=== PATIENT | male | born 1985 | race Caucasian/White ===

== ENCOUNTER 2019-06-03 06:34 | Day surgery (SDC) | payer OTHER, SELFPAY ==
--- NOTE | 2019-06-03 06:47 | EKG12_ITS ---
Test Reason : PRE OP Blood Pressure : / mmHG Vent. Rate : 062 BPM Atrial Rate : 062 BPM P-R Int : 176 ms QRS Dur : 090 ms QT Int : 390 ms P-R-T Axes : 072 040 028 degrees QTc Int : 395 ms Normal sinus rhythm with sinus arrhythmia Normal ECG Confirmed by AMBER SOLIS, LOPEZ ([id number]), department editor JOSHUA RIVER ([id number]) on 06/06/2019 2:10:28 PM Referred By: Raleigh Goel Confirmed By:LOPEZ CLARK MD
[2019-06-03 06:57] VITALS: BP 134/87; PULSE 74; RESP 16; TEMP 36.7; O2SAT 97; BMI 28.3
[2019-06-03 07:09] LABS: Hematocrit 46.9 % (40-54); Hemoglobin 16.2 g/dl (13.0-16.5); Mean Corp Hgb Conc 34.5 g/gl (32-36); Mean Corpuscular Hgb 30.1 pg (27.0-32.0); Mean Corpuscular Volume 87.2 fL (80-94); Mean Platelet Vol. 11.1 fl (6.2-12.0); Platelet Count 166 K/mm3 (150-450); RBC Distribution Width CV 12.3 % (11.6-14.6); RBC Distribution Width SD 39.3 fl (35.1-43.9); Red Blood Count 5.38 M/mm3 (4.6-6.2); Scan Indicated on CBC? Y/N NO; White Blood Count 6.3 K/mm3 (4.4-11.0)
[2019-06-03 07:14] LABS: Prothrombin Time (Protime)PT. 13.2 SECONDS (11.7-14.9)
[2019-06-03 07:15] LABS: Partial Thromboplast Time 28.1 Seconds (24.1-36.2)
[2019-06-03 07:20] LABS: AST(SGOT) 16 U/L (15-37); Alanine Aminotransfer ALT/SGPT 29 U/L (16-61); Albumin, Serum 3.9 g/dL (3.2-5.0); Alkaline Phosphatase 79 U/L (45-117); Anion Gap 3 (5-15); BUN 12 mg/dL (7-18); BUN/Creat Ratio 13.2 RATIO (10-20); Bilirubin, Direct 0.17 mg/dL (0.00-0.30); Calcium,Total 8.4 mg/dL (8.5-10.1); Chloride 107 mmol/L (98-107); Creatinine, Serum 0.91 mg/dL (0.70-1.30); EST Glomerular Filtration Rate 102 mL/min (>60); Est Glom Filt Rate - Afr Amer 123 mL/min (>60); Globulin 2.9 g/dL (2.2-4.2); Glucose 93 mg/dL (74-106); Potassium 4.1 mmol/L (3.5-5.1); Protein, Total 6.8 g/dL (6.4-8.2); Sodium Level 137 mmol/L (136-145)
--- NOTE | 2019-06-03 08:25 | SEP_PTH ---
PATIENT: RENEE CHANG LOC: [facility] [place] U#:[id number] AGE/SX: 34/M ROOM: RE06/03/[address]: Dr. Raleigh Goel MD : 1985 BED: DIS: 06/03/2019 SPEC #: [id number] RECD: 06/03/19 11:11 STATUS: CLAYTONHayley VAN #: [id number] MARCI: 06/03/19 08:[address]: Raleigh Goel DEPT: SURGICAL PATHOLOGY RECD BY: Pérez Akhtar ENTERED: 06/03/19 15:12 SP TYPE: SEPTUM OTHR DR: Out of Town Doctor Tissues: Nasal septum, NOS Procedures: Decalcification bone/plaque Surgery Specimen Level III HEADER OPERATION: Septoplasty PRE-OP DIAGNOSIS: Nasal vestibulitis, deviated nasal septum TISSUE SUBMITTED: Nasal septum contents MICROSCOPIC DIAGNOSIS Nasal septum (clinically deviated septum): Fragments of hyaline cartilage and bone with reparative and reactive change. AM:liu 06/08/19 MICROSCOPIC DESCRIPTION Slides are reviewed. GROSS DESCRIPTION Received in fixative is one container labeled with the patient's name and designated nasal septum contents. The specimen consists of multiple irregular fragments of massey-white bone and cartilage that in aggregate measure 5 x 3 x 2 cm. The specimen is totally submitted in two cassettes after decalcification. / AM:liu 06/03/19 TC:5 CPT: 23776, 32286
[2019-06-03] MEDS: Bacitracin 500 UNITS/GM PACKET (09:00)
[2019-06-03] MEDS: Lidocaine 4% 50 ML Bottle (09:05)
[2019-06-03] MEDS: Oxymetazoline 0.05% 1 SPRAY SPRAY.BTL 15 SPRAY (09:05)
--- NOTE | 2019-06-03 09:29 | OP.PCM_ITS ---
Problem List (1) Deviated nasal septum Status: Chronic Report of Operation Date of Procedure: 06/03/19 Pre-Operative Diagnosis: Deviated nasal septum with columellar deflection Post-Operative Diagnosis: Same Surgery/Procedure Performed:: Septoplasty with correction of columellar deflection Description of Surgical Findings:: Alfonzo is a 34-year-old male presents for evaluation of chronic nasal obstruction as well as a nonhealing lesion within the left nasal septum. This is failed to improve despite appropriate medical therapy and anatomical obstruction of the left sided nasal opening with resultant chronic dryness to the anterior nasal septal mucosa was noted from his septal deviation and columellar deflection and the above sutures often have the improvement of these complaints. The risks, alternatives, potential complications, and benefits were discussed at length and any questions answered to the patient and/or caregiver's satisfaction. Witnessed informed consent was obtained in the office, and the patient and/or caregiver was agreeable to proceed. Procedure went as follows: The patient was identified in the preoperative holding and brought to the operating room, was placed under general anesthesia and intubated. When appropriate anesthesia was obtained, pledgets soaked in a 50-50 mixture of oxymetazoline and 4% topical lidocaine were placed to decongest the nasal mucosa. The nasal septum was then injected beginning on the left side with 1% lidocaine with 100,000 epinephrine for a total of 6 mL. The pledgets were then removed and the left nasal cavity examined. There was noted to be significant nasal septal deviation to the left along with left columellar deflection. Using a 15 blade scalpel, a hemitransfixion incision was then made on the left side and using the Levi elevator a subperichondrial/periosteal flap was elevated. The septum was then transected at the bony cartilaginous junction and a similar flap raised on the contralateral side. Using a Harish- Booker forceps, the septum was then sharply transected superiorly and the deviated portions removed with a Ed forceps. Any inferior bony spur was then removed with a chisel allowing for midline placement of the nasal septum. The submucosal flap was then developed anteriorly where the columellar deflection was then reduced by gently releasing the areas of adhesion laterally which allowed for more midline relocation of the columella along the nasal spine. A straight portion of the resected cartilage was then fashioned and placed within a pocket as a strut graft to both take the torsion of the columella and provide for additional nasal tip support which was noted to be somewhat soft. This resulted in significant reduction of the left columellar deflection and torsion of the nasal tip. The hemitransfixion incision was then closed with interrupted 4-0 chromic gut suture followed by a 4-0 plain quilting suture to reapproximate the mucosal flaps. Tipton splints coated with Bacitracin ointment were then applied to each nasal cavity and secured at the columella with a single 3-0 Prolene suture. An NG tube was then placed to decompress the stomach and the patient returned to anesthesia, revived and extubated having tolerated the procedure well. Type of Anesthesia:: General Anesthesiologist: Raleigh Galvez Special Medications: none Specimen's removed: nasal septal contents Drains: none Estimated Blood Loss (mL): 50 mL Fluids Replaced: 1000 mL Grafts/Implants Used: Tipton splints - Complications none - Admit VTE Documentation VTE Present on Admission: No VTE Mechan Device Prophylaxis: SCD's VTE Pharm Prophylaxis ordered?: No
--- NOTE | 2019-06-03 09:35 | PCM.DC ---
- Discharge Diagnoses Current Active Problems: Current Active and Chronic Problems Deviated nasal septum (Chronic) You will use the following diet at home:: No restrictions Discharge Activity: Return to Normal Activity, May not drive while taking narcotic pain medications. Call your doctor if your incision/area has: Sudden Increased Bleeding Call your doctor if you observe: Fever of 101 or Higher, Uncontrolled pain Allergies/Adverse Reactions: Allergies clarithromycin [From Biaxin] Adverse Reaction (Verified 05/31/19 14:49) Nausea Medications to take at Discharge NK 05/31/19 Primary Care Physician: [facility] ,Out of [Primary Care Provider] - Test Results: Test results from this visit will be discussed in further detail at your follow-up appointment, if applicable. Please Follow Up With: Raleigh Goel MD When: 5 days
[2019-06-03 09:44] VITALS: BP 121/81; BP 134/87; PULSE 72; RESP 16; TEMP 36.4; O2SAT 92
[2019-06-03 10:00] VITALS: BP 117/74; BP 134/87; PULSE 68; RESP 16; O2SAT 92
[2019-06-03 10:15] VITALS: BP 116/71; BP 134/87; PULSE 65; RESP 16; TEMP 36.5; O2SAT 96
[2019-06-03 11:10] VITALS: BP 118/78; BP 134/87; PULSE 58; RESP 16; TEMP 36.5; O2SAT 96
== END 2019-06-03 11:10 | disposition home or self-care (01) ==
LOC: SDC 06:38 → AC 06:38
PROVIDERS: Anesthesiology; Referring Provider Otolaryngology; Visit Provider Otolaryngology
PROC: (CPT 30520; principal; 2019-06-03 08:10)
DX: J34.2 Deviated nasal septum (principal); Z87.891 Personal history of nicotine dependence; J30.9 Allergic rhinitis, unspecified; J34.89 Other specified disorders of nose and nasal sinuses
CPT/HCPCS: 30520; 36415; 80048; 80076; 85027; 85610; 85730; 88304; 88311; 93005; J7120; J2405